=== PATIENT | male | born 1945 | race Caucasian/White ===

== ENCOUNTER 2024-01-07 08:28 | Emergency (ER) | payer MEDICARE, SELFPAY ==
[2024-01-07 08:33] VITALS: BP 143/87
[2024-01-07 08:46] VITALS: BP 135/78
[2024-01-07 08:48] VITALS: BMI 48.7
[2024-01-07 09:00] VITALS: BP 120/73
[2024-01-07 09:08] LABS: % Basophils 0.7 % (0-2); % Eosinophils 2.8 % (0-6); % Immature Granulocytes 0.3 % (0-0.5); % Lymphocytes 21.3 % (20.5-51.1); % Monocytes 9.4 % (1.7-9.3); % Neutrophils 65.5 % (42.2-75.2); Absolute Eosinophils 0.2 10^3/uL (0-0.7); Absolute Lymphocytes 1.3 10^3/uL (1.2-3.4); Absolute Monocytes 0.6 10^3/uL (0.1-0.6); Hematocrit 37.6 % (39.0-52.0); Hemoglobin 13.5 g/dL (13.0-18.0); Mean Corp Hgb Conc. 35.9 g/dL (33.0-37.0); Mean Corpuscular Hgb 36.5 pg (27.0-31.0); Mean Corpuscular Volume 101.6 fL (80.0-94.0); Mean Platelet Volume 10.7 fL (7.4-10.4); Nucleated Red Blood Cells % 0 % (-); Platelet Count 153 10^3/uL (130-400); Red Cell Dist. Width 12.6 % (11.5-14.5); White Blood Cell Count 6.1 10^3/uL (4.8-10.8)
--- NOTE | 2024-01-07 09:18 | ED.GENMED ---
History of Present Illness
General
Chief Complaint: Chest Pain
Source: patient
Exam Limitations: none
Time Seen by Provider: 01/07/24 08:38
Nursing documentation reviewed up to this point in time: agreed with
History of Present Illness
History of Present Illness:
Patient with history of CAD, status post CABG in 2020, presents to ED secondary to recurrent chest pain, shortly after waking up this morning. Chest pain described as dull, achy, in the middle of his chest, nonradiating, without any associated
shortness of breath, nausea, or diaphoresis. Patient states that his chest pain is similar to what he had experienced in 2020. Chest pain lasted approximately 20 to 30 minutes, with spontaneous resolution. At the time of evaluation ED, patient is
without any chest pain. Denies recent travel or surgery. Denies recent illness. Denies recent change in medications or diet. However, over the past 1 month, patient has experienced increased shortness of breath, along with leg swelling, as well
as approximately 5 pound weight gain over that time period.
Past History
Past History
ED Past Medical History: HTN and Other
ED Past Surgical History: None
Social History
Tobacco: Non-smoker
Alcohol: Occasional
Personal:
Living: with family
Review of Systems
Review of Systems
Allergies reviewed?: Yes
All Other Systems: ROS reviewed and negative except as documented in HPI and ROS
Constitutional: Reports no symptoms
EENT: Reports no symptoms
Respiratory: Reports no symptoms
Cardiac: Reports chest pain
ABD/GI: Reports no symptoms
: Reports no symptoms
Musculoskeletal: Reports no symptoms
Skin: Reports no symptoms
Neurological: Reports no symptoms
Phy Exam
Physical Exam
Physical Exam:
Physical Exam
General: no apparent distress, not acutely ill. afebrile
Head: nc/at. eomi
Neck: supple. no meningeal signs.
Heart: s1/s2 regular rate and rhythm, no murmur. equal radial pulses.
Lungs: no acute respiratory distress. clear bilaterally
Abdomen: normal bowel sounds. not tender.
Neuro: alert and oriented. no focal neurological deficits
Skin: no rash
Psychiatric: well kept. interactive and cooperative
Extremities: no edema. no calf tenderness.
Scores
Heart Score for Chest Pain Patients
STEMI patient?: No
History: Moderately Suspicious
ECG: Normal
Age: >/= 65 years
Risk Factors: >/= 3 Risk Factors or History of CAD
Troponin: </= Normal Limit
Heart Score for Chest Pain Patients: 5
Heart Score Risk: 20.3% MACE over next 6 weeks
Course
Orders/Labs/Results
Orders:
Orders
01/07/24 08:29
Electrocardiogram (*1) Urgent
Reason for Study: Chest Pain
01/07/24 08:30
EKG- Treatment ONCE
01/07/24 08:57
Complete Blood Count/With Diff Urgent
Comprehensive Metabolic Panel Urgent
NT-proBNP Urgent
Comment: ADD ON
Troponin I Urgent
01/07/24 09:55
Add On- LAB Urgent
Tests Added?: ProBNP
01/07/24 09:56
CR Chest - 2 Views Urgent
Comment:
Reason For Exam: cp/sob
01/07/24 12:15
EKG- Treatment ONCE
01/07/24 13:30
Electrocardiogram (*1) Urgent
Reason for Study: Chest Pain
Troponin I Urgent
Abnormal Lab Results
01/07/24
08:57
RBC 3.70 L 10^6/uL
(4.70-6.10)
Hct 37.6 L %
(39.0-52.0)
MCV 101.6 H fL
(80.0-94.0)
MCH 36.5 H pg
(27.0-31.0)
MPV 10.7 H fL
(7.4-10.4)
Monocytes % 9.4 H %
(1.7-9.3)
BUN 22 H mg/dl
(9-20)
Glucose 164 H mg/dl
(70-99)
Total Protein 5.9 L g/dl
(6.3-8.2)
01/07/24 08:57
01/07/24 08:57
Vital Signs
Initial and Last Documented VS:
Initial Vital Signs
Temp Pulse Resp BP Pulse Ox
98.6 F 73 18 143/87 95
01/07/24 08:33 01/07/24 08:33 01/07/24 08:33 01/07/24 08:33 01/07/24 08:33
Last Documented Vital Signs
Temp Pulse Resp BP Pulse Ox
98.6 F 68 16 131/81 96
01/07/24 08:33 01/07/24 15:22 01/07/24 15:22 01/07/24 15:22 01/07/24 12:00
MDM/Problems Addressed
MDM/Problems Addressed:
Patient remains chest pain-free during extended course of observation in the ED (>7hrs) along with unremarkable workup, including repeat troponin as well as repeat EKG. Mild troponin elevation noted, unchanged when repeated. Patient will be
discharged home in stable condition, to the care of his , with recommendation to speak with his web software engineer upon discharge from ED for an urgent outpatient evaluation. In addition recommended immediate return to ED with recurrent chest pain.
*EKG
Interpreted by ED Provider?: Yes
EKG Intrepretation Date: 01/07/24
Heart Rate: 71
Rate: normal
Rhythm: sinus
[place]: normal axis
Interval: normal interval
*Critical Care Note
Total Time (30-74mins, 75-104mins- exclusive of procedures): Not Applicable
ED Attending Note
-
Portions of this chart may have been created with voice recognition software.� Occasional wrong word or��sound alike� substitutions may have occurred due to the inherent limitations of voice recognition software.
Discharge Plan
Departure
Patient Disposition: Home (Routine Discharge)
Date of Disposition: 01/07/24
Time of Disposition: 15:14
Patient with high blood pressure during this ER visit?: Yes
Discharge Problem:
Chest pain
Instructions: Chest Pain NON-[facility] Follow Up
Prescriptions:
No Action
ascorbic acid (vitamin C) [Vitamin C] 1,000 MG tablet
1,000 mg PO DAILY
leucovorin calcium 10 MG tablet
10 mg PO WE
Patient Comments:
take 12 hrs after methotrexate
allopurinol 100 MG tablet
100 mg PO DAILY
aspirin [Adult Aspirin Regimen] 81 MG tablet,delayed release (DR/EC)
81 mg PO HS
methotrexate sodium 2.5 MG tablet
6 tab PO WE
allopurinol 300 MG tablet
300 mg PO DAILY
duloxetine 30 MG capsule,delayed release(DR/EC)
30 mg PO DAILY
[id number]-evhyl-[id number]-uyogttl-ejaabb [Centrum Silver Men] 1 EACH tablet
1 ea PO DAILY
viynb-an-0-orn-jie-ncziprm-ast [MegaRed [place]-3 Krill Oil] 1 EACH capsule
1 ea PO DAILY
atorvastatin 40 MG tablet
40 mg PO QPM Qty: 30 3RF
acetaminophen 325 MG tablet
650 mg PO Q4HPRN PRN (Reason: mild pain,headache,temp >101F ) 0RF
tramadol 50 MG tablet
50 mg PO Q6HPRN PRN (Reason: moderate-severe pain) Qty: 28 0RF
metoprolol tartrate 25 MG tablet
25 mg PO BID Qty: 60 3RF
furosemide [Lasix] 40 MG tablet
40 mg PO DAILY Qty: 7 1RF
potassium chloride [Klor-Con M20] 20 MEQ tablet,ER particles/crystals
20 meq PO DAILY Qty: 7 1RF
cephalexin 500 MG capsule
500 mg PO BID Qty: 13 0RF
Referrals:
Tommie Juarez DO [Family Provider] -
Activity Restrictions/Additional Instructions:
As discussed, please follow-up with your primary web software engineer upon discharge for reevaluation. Please consider returning to ED immediately with recurrent chest pain.
Interventions
Interventions:
*Risk Screen - Suicide Last Done: 01/07/24 08:33
*General Assessment Last Done: 01/07/24 08:33
*Neglect/Abuse Screening Last Done: 01/07/24 08:33
*Nursing Disposition Last Done: 01/07/24 15:40
ED- Cardiac Assessment Last Done: 01/07/24 09:05
Discharge Date and Time
Discharge Date/Time: 01/07/24 15:40
Print Language: FRENCH
[2024-01-07 09:23] LABS: ALT (SGPT) 34 U/L (0-50); AST (SGOT) 29 U/L (17-59); Albumin 3.6 g/dl (3.5-5.0); Alkaline Phosphatase 76 U/L (38-126); Blood Urea Nitrogen 22 mg/dl (9-20); Calcium 9.1 mg/dl (8.4-10.2); Carbon Dioxide 24 mmol/L (22-30); Chloride 107 mmol/L (98-107); Estimated Creatinine Clearance 81 ml/min; Glucose 164 mg/dl (70-99); Potassium 4.4 mmol/L (3.5-5.1); Sodium 139 mmol/L (135-145); Total Bilirubin 0.9 mg/dl (0.2-1.3); Total Protein 5.9 g/dl (6.3-8.2); eGFR > 60.00
[2024-01-07 09:34] LABS: Troponin I 0.029 ng/ml
[2024-01-07 10:00] VITALS: BP 140/71
[2024-01-07 12:31] LABS: NT-proBNP 421 pg/ml
[2024-01-07 14:26] LABS: Troponin I 0.027 ng/ml
[2024-01-07 15:22] VITALS: BP 131/81
== END 2024-01-07 15:40 | disposition home or self-care (01) ==
LOC: EMR 08:28
PROVIDERS: Emergency Medicine; EMERGENCY PHYSICIAN Emergency Medicine; FAMILY PHYSICIAN Family Medicine
DX: R07.89 Other chest pain (principal); R06.02 Shortness of breath; M79.89 Other specified soft tissue disorders; R63.5 Abnormal weight gain; I25.10 Atherosclerotic heart disease of native coronary artery without angina pectoris; I10 Essential (primary) hypertension; E78.5 Hyperlipidemia, unspecified; M19.90 Unspecified osteoarthritis, unspecified site; Z95.1 Presence of aortocoronary bypass graft; Z86.73 Personal history of transient ischemic attack (TIA), and cerebral infarction without residual deficits; Z87.891 Personal history of nicotine dependence; Z88.5 Allergy status to narcotic agent; Z88.8 Allergy status to other drugs, medicaments and biological substances
CPT/HCPCS: 99284; 71046; 80053; 83880; 84484; 85025; 93005

== ENCOUNTER 2024-01-14 08:29 | Day surgery (SDC) | payer MEDICARE, SELFPAY ==
[2024-01-14] VITALS (16 sets, daily range): BP systolic 115–133; BP diastolic 60–88; BMI 49.4
[2024-01-14] MEDS: LOW STRENGTH ASPIRIN 81 MG PO (09:25)
[2024-01-14] MEDS: NSS 404 ML IV (09:26)
--- NOTE | 2024-01-14 12:34 | ITS.CL.CATH ---
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
Cardiac Catheterization
Procedure Report:
CARDIAC CATHETERIZATION REPORT
Date of Procedure: 01/14/2024
Referring: Nikos Wilson MD
Indication: Episode of anginal type chest discomfort 3 years following CABG x 3 at [facility]
�
HEMODYNAMIC DATA
AO: 134/77
LV: 134/20
�
LEFT VENTRICULOGRAPHY: Inferior hypokinesis with EF 54%
�
CORONARY ANGIOGRAPHY
Dominance: Right
Left Main: Calcified with complex 80% bifurcation lesion involving takeoff of LAD and circumflex
LAD: 60% ostial LAD stenosis with otherwise trivial luminal disease in the LAD proper. The mid and distal LAD fill antegrade and via a patent RAE to mid LAD. There is no LAD disease distal to the touchdown site. The diagonal branches have mild
luminal disease.
Circumflex: 90% ostial circumflex stenosis. There is a second area of 90% stenosis in the circumflex distal to the takeoff of the small OM1 and proximal to the origin of the medium to large OM 2. The circumflex continues with a medium sized OM 3
and a small OM 4 followed by single small posterolateral branch. There is a vein graft supplying OM 2 which backfills into the circumflex to supply OM 3, OM 4, and LPL branches
RCA: The RCA remains occluded. A vein graft to the mid PDA is widely patent and there is no significant disease in the PDA distal to the touchdown site. There is backfilling through a healthy appearing proximal PDA to supply a small RPL 1 and a
large RPL 2
Bypass grafts:
1. The left internal mammary graft to the LAD is widely patent with excellent runoff
2. The saphenous vein graft to the RCA is widely patent with excellent runoff
3. The saphenous vein graft to OM 2 is widely patent with excellent runoff
Closure Device: None-the procedure was performed via the left radial artery. The Blake's test was normal prior to the procedure.
�
Radiation (mGy): 832
DAP (cm2.Gy): 74.9
Fluoroscopy time: 13 minutes
�
CONCLUSIONS
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
2:�Severe left main and [place] triple-vessel CAD as described with patent RAE-LAD, SVG-OM 2, and SVG-RPDA bypass grafts. All grafts are widely patent and the patient is very well revascularized
3. Continue risk factor modification efforts
�
Copy to: Nikos Wilson MD, Tommie Juarez DO and Varun Reilly MD
�
Baldomero Garcia MD, [facility], [facility]
== END 2024-01-14 16:35 | disposition home or self-care (01) ==
LOC: CATH 08:29
PROVIDERS: ATTENDING PHYSICIAN Internal Medicine Cardiovascular Disease; FAMILY PHYSICIAN Family Medicine; OTHER PHYSICIAN Internal Medicine Cardiovascular Disease
DX: I25.119 Atherosclerotic heart disease of native coronary artery with unspecified angina pectoris (principal); Z95.1 Presence of aortocoronary bypass graft; Z79.82 Long term (current) use of aspirin
CPT/HCPCS: 93459; C1894; Q9967

== ENCOUNTER → 2024-08-18 08:46 | Outpatient (REF) | payer MEDICARE, SELFPAY | LOC: WDC 08:46 | PROVIDERS: ATTENDING PHYSICIAN Family Medicine | DX: N63.42 Unspecified lump in left breast, subareolar (principal) | CPT/HCPCS: 76642; 77062; 77066 ==

== ENCOUNTER 2025-01-06 07:55 | Emergency (ER) | payer MEDICARE, SELFPAY ==
[2025-01-06 07:56] VITALS: BP 150/76
--- NOTE | 2025-01-06 08:16 | ED.GENMED ---
History of Present Illness
General
Chief Complaint: Fall
Source: patient and spouse
Exam Limitations: none
Time Seen by Provider: 01/06/25 08:01
History of Present Illness
History of Present Illness:
79-year-old male rolled out of bed wedged between the furniture. Abrasion laceration to the head. Hematoma to the right lateral scalp. Some general headache. No nausea or vomiting. No neck pain. No other significant complaints. Last tetanus
is unknown
Past History
Past History
ED Past Medical History: HTN and Other
ED Past Surgical History: None
Social History
Tobacco: Non-smoker
Alcohol: Occasional
Personal:
Living: with family
Review of Systems
Review of Systems
All Other Systems: Not applicable
Respiratory: Reports no symptoms
Cardiac: Reports no symptoms; Denies syncope
Phy Exam
Physical Exam
Physical Exam:
TRAUMA EXAM:
VITAL SIGNS: Vital signs reviewed, cooperative
DISTRESS: No active disease
EYES: Pupils reactive, no orbital trauma
NOSE: No deformity or epistaxis
FACE AND SCALP: 2 cm laceration right lateral eyebrow. 2 cm laceration more superficial left lateral eyebrow
NECK: Supple nontender
BACK: Back nontender, pelvis stable to compression
RESPIRATORY: No distress, breath sounds normal, no tender chest wall
CARDIAC: No murmur, pulses equal and strong
ABDOMEN: Soft nontender bowel sounds normal
SKIN: Skin intact no bleeding, color normal
EXTREMITIES: Nontender
NEUROLOGICAL: Alert, oriented, no motor deficits
PSYCH: Mood affect normal
Course
Orders/Labs/Results
Orders:
Orders
01/06/25 08:14
CT Head W/o Iv Contrast Urgent
Comment:
Reason For Exam: Head injury
01/06/25 08:35
Tetanus/Diphth/Acelpertussis [Adacel] 0.5 ml IM .ONCE ONE
Vital Signs
Initial and Last Documented VS:
Initial Vital Signs
Temp Pulse Resp BP Pulse Ox
98.0 F 67 16 150/76 96
01/06/25 07:56 01/06/25 07:56 01/06/25 07:56 01/06/25 07:56 01/06/25 07:56
Last Documented Vital Signs
Temp Pulse Resp BP Pulse Ox
98.0 F 64 20 132/76 98
01/06/25 07:56 01/06/25 09:10 01/06/25 09:10 01/06/25 09:10 01/06/25 09:10
Procedures
Laceration Closure
Right lateral eyebrow:
Status of Wound: clean
Size of Wound in cm: 2
Description of Wound Edges: sharp
Preparation: cleaned with saline
Revision/Debridement: routine- no revision
Type of Closure: Dermabond-skin glue
Left lateral eyebrow:
Status of Wound: clean
Size of Wound in cm: 2
Description of Wound Edges: sharp
Preparation: cleaned with saline
Revision/Debridement: routine- no revision
Wound exploration: explored to base- no FB
Type of Closure: Dermabond-skin glue
MDM/Problems Addressed
Differential Diagnosis Includes:
Relatively low suspicion for serious head injury however patient's age and aspirin will check CT scan. Last tetanus unknown.
*Radiology
Radiology exam reviewed: radiology read reviewed (No acute findings. Old CVA)
*Pulse Oximetry
SaO2: 96
Oxygen Mode of Delivery: Room air
Patient hypoxic: no
*Critical Care Note
Total Time (30-74mins, 75-104mins- exclusive of procedures): Not Applicable
ED Attending Note
-
Portions of this chart may have been created with voice recognition software.� Occasional wrong word or��sound alike� substitutions may have occurred due to the inherent limitations of voice recognition software.
Discharge Plan
Departure
Patient Disposition: Home (Routine Discharge)
Date of Disposition: 01/06/25
Time of Disposition: 08:46
Patient with high blood pressure during this ER visit?: Yes
Discharge Problem:
Closed head injury, Multiple lacerations
Instructions: Laceration Repair With Glue (DC), Head Injury in Adults (DC), BLOOD PRESSURE
Prescriptions:
No Action
ascorbic acid (vitamin C) [Vitamin C] 1,000 MG tablet
1,000 mg PO DAILY
leucovorin calcium 10 MG tablet
10 mg PO WE
Patient Comments:
take 12 hrs after methotrexate
allopurinol 100 MG tablet
400 mg PO DAILY
aspirin [Adult Aspirin Regimen] 81 MG tablet,delayed release (DR/EC)
81 mg PO HS
methotrexate sodium 2.5 MG tablet
6 tab PO WE
duloxetine 30 MG capsule,delayed release(DR/EC)
30 mg PO DAILY
Centrum Silver Men 1 EACH tablet
1 ea PO DAILY
MegaRed [place]-3 Krill Oil 1 EACH capsule
1 ea PO DAILY
atorvastatin 40 MG tablet
40 mg PO QPM Qty: 30 3RF
acetaminophen 325 MG tablet
650 mg PO Q4HPRN PRN (Reason: mild pain,headache,temp >101F ) 0RF
metoprolol tartrate 25 MG tablet
25 mg PO BID Qty: 60 3RF
nabumetone 750 mg Tablet
750 mg PO BID
Interventions
Interventions:
*Risk Screen - Suicide Last Done: 01/06/25 07:56
*General Assessment Last Done: 01/06/25 07:56
*Neglect/Abuse Screening Last Done: 01/06/25 07:56
*ED- Fall Risk Assessment Last Done: 01/06/25 09:15
*ED COVID-19 Vaccine History Last Done: 01/06/25 07:56
*Nursing Disposition Last Done: 01/06/25 09:15
ED-Musculoskeletal Assessment Last Done: 01/06/25 09:10
ED- Neurological Assessment Last Done: 01/06/25 09:10
ED-Skin Assessment Last Done: 01/06/25 09:10
Discharge Date and Time
Discharge Date/Time: 01/06/25 09:15
Print Language: TURKISH
[2025-01-06 08:18] VITALS: BMI 46.3
[2025-01-06] MEDS: ADACEL 0.5 ML IM (08:59)
[2025-01-06 09:10] VITALS: BP 132/76
== END 2025-01-06 09:15 | disposition home or self-care (01) ==
LOC: EMR 07:55
PROVIDERS: EMERGENCY PHYSICIAN Emergency Medicine; FAMILY PHYSICIAN Family Medicine
DX: S09.90XA Unspecified injury of head, initial encounter (principal); S01.112A Laceration without foreign body of left eyelid and periocular area, initial encounter; S01.111A Laceration without foreign body of right eyelid and periocular area, initial encounter; I10 Essential (primary) hypertension; Z23 Encounter for immunization; Z79.82 Long term (current) use of aspirin; W06.XXXA Fall from bed, initial encounter
CPT/HCPCS: 99284; 12013; 90471; 70450; 90715

== ENCOUNTER → 2025-02-02 10:47 | Outpatient (REF) | payer MEDICARE, SELFPAY | LOC: HWRAD 10:47 | PROVIDERS: ATTENDING PHYSICIAN Internal Medicine Rheumatology; FAMILY PHYSICIAN Family Medicine | DX: L40.50 Arthropathic psoriasis, unspecified (principal); M17.10 Unilateral primary osteoarthritis, unspecified knee | CPT/HCPCS: 73560; 73565 ==